=== PATIENT | male | born 1960 | race Caucasian/White ===

== ENCOUNTER 2017-08-29 09:52 | Observation (INO) | payer OTHER, MEDICARE ==
[~2017-08-29] VITALS: Ht 182.9 cm; Wt 118.2 kg
[~2017-08-29 09:52] MED LIST: ALBUTEROL0.63 MG/3 INH; ATIVAN2 MG PO; COMBIVENT RESPIM4 GM IH; LISINOPRIL10 MG PO; METFORMIN HCL500 MG PO; PRILOSEC20 MG PO; ZOLOFT50 MG PO
[2017-08-29] MEDS ORDERED: PIPER-TAZ 3.375 GM 50 ML IV STA (10:25)
[2017-08-29] MEDS ORDERED: SODIUM CHLORIDE 0.9% 1000ML 1,000 ML IV STA (10:25)
[2017-08-29] MEDS ORDERED: METHYLPREDNISOLONE SOD SUCC 125 MG/2ML VIAL IV ONE (10:30)
[2017-08-29] MEDS ORDERED: ONDANSETRON HCL INJ 2 MG/ML VIAL IV STA (10:42)
[2017-08-29] MEDS ORDERED: MORPHINE SULFATE 5 MG/ML VIAL IV ONE (10:45)
[2017-08-29] MEDS ORDERED: ALBUTEROL/IPRATROPIUM 3 ML NEB NEB PRN (11:00)
[2017-08-29 11:35] LABS: BASOPHILS # (AUTO) 0.1 (0.0-0.1); BASOPHILS % 1.3 % (0.0-1.0); EOSINOPHILS # (AUTO) 0.3 (0.0-0.4); HEMATOCRIT 43.1 % (38.2-49.6); HEMOGLOBIN 13.9 g/dL (14.0-18.0); LYMPHOCYTES # (AUTO) 2.8 (1.0-3.2); LYMPHOCYTES % 34.3 % (18.0-39.1); MEAN CORPUSCULAR HEMOGLOBIN 26.9 pg (28-32); MEAN CORPUSCULAR HGB CONC 32.3 g/dL (31-35); MEAN CORPUSCULAR VOLUME 83.4 fL (81-99); MONOCYTES # (AUTO) 0.9 (0.2-0.8); MONOCYTES % 11.2 % (4.4-11.3); NEUTROPHILS # (AUTO) 4.1 (2.1-6.9); NEUTROPHILS % 49.8 % (38.7-80.0); PLATELET COUNT 290 x10e3/uL (140-360); RED BLOOD COUNT 5.17 x10e6/uL (4.3-5.7); RED CELL DISTRIBUTION WIDTH 13.6 % (11.7-14.4)
--- NOTE | 2017-08-29 11:43 | Diagnostic Imaging Report ---
PROCEDURE: Frontal and lateral views of the chest. COMPARISON: 10/18/2014 INDICATIONS: SHORTNESS OF BREATH FINDINGS: Lines/tubes: None. Lungs: The lung volumes are low. There is subsegmental atelectasis and scarlike opacities in the lung bases and left midlung. Pleura: There is no pleural effusion or pneumothorax. Heart and mediastinum: The heart and the mediastinum are normal. Bones: No acute bony abnormality. IMPRESSION: Low lung volumes with subsegmental atelectasis and scarlike opacities in the lung bases and left midlung. No evidence of infection or edema. Dictated by: Hector Moss M.D. on 08/29/2017 at 11:51 Electronically approved by: Hector Moss M.D. on 08/29/2017 at 11:51
[2017-08-29 12:02] LABS: ALANINE AMINOTRANSFERASE 29 IU/L (0-55); ALBUMIN 3.7 g/dL (3.5-5.0); ALKALINE PHOSPHATASE 110 IU/L (40-150); BLOOD UREA NITROGEN 16 mg/dL (7-26); BUN/CREATININE RATIO 18 (6-25); CALCIUM 8.8 mg/dL (8.4-10.2); CARBON DIOXIDE 28 mmol/L (22-29); CHLORIDE 101 mmol/L (98-107); CREATININE, SERUM 0.87 mg/dL (0.72-1.25); EST GLOMERULAR FILTRATION RATE > 60 ML/MIN (60-); GLUCOSE 288 mg/dL (74-118); SODIUM 137 mmol/L (136-145)
[2017-08-29] MEDS ORDERED: DEXTROSE 50% SYRINGE 50 ML IV PRN (12:30)
[2017-08-29] MEDS ORDERED: LORAZEPAM 0.5 MG TAB PO PRN (13:15)
[2017-08-29] MEDS ORDERED: PANTOPRAZOLE SOD 40 MG TABEC PO SCH (14:00)
--- NOTE | 2017-08-29 14:46 | Diagnostic Imaging Report ---
Examination: CT Face with Contrast History:Right facial swelling. Tooth infection. Abscess. Comparison studies: None Technique: Axial images were obtained through the maxillofacial region. Coronal and sagittal reconstructions obtained from the axial data. Intravenous contrast: 100 mL Isovue-370. Findings: Soft tissues: No abnormalities. Bones: No fractures or bony abnormalities. Orbits: Globes: Intact Extra or intraconal abnormalities: None. Paranasal sinuses: Mild inflammatory mucosal thickening of the left sphenoid sinus. Nasal cavity: Patent. No septal deviation. IMPRESSION: 1. No phlegmonous change or abscess within the soft tissues of the face. 2. Mild inflammatory mucosal thickening of the left sphenoid sinus. Signed by: Dr. Vane Aguirre M.D. on 08/29/2017 2:42 PM
[2017-08-29] MEDS: ALBUTEROL SULF 0.083% NEB SOLN 3 ML NEB INH SCH ×2 (14:50→19:00)
[2017-08-29] MEDS ORDERED: SODIUM CHLORIDE 0.9% 50ML 50 ML ONE (15:03)
[2017-08-29] MEDS ORDERED: IOPAMIDOL 370 MG/ML 200 ML INFUS..BTL INJ ONE (15:03)
--- NOTE | 2017-08-29 16:06 | Discharge Summary ---
JAYDEN WILSON, LENGTH 0:3 JARRETT CHI MD Job#: [id number] RI
--- NOTE | 2017-08-29 16:34 | Consultation ---
DATE OF CONSULTATION: August 29, 2017 REASON FOR CONSULTATION: To evaluate and assist in the management of the patient with COPD exacerbation and right facial pain. Information is gathered from the current medical record. I interviewed the patient at the bedside. He is a 57-year-old male with diabetes and hypertension who came to the emergency room with complaints of increasing shortness of breath associated with nonproductive cough. The patient also reports that for the past 2 weeks or so he has been seeing a dentist for periodontal disease. He was told that he had dental infection for which he has been on amoxicillin and penicillin for about 2 weeks. He was started on amoxicillin initially and after he had completed the course, he went back to have some invasive dental procedure. He reports that he received injection in his gum 4 different times, apparently for anesthesia. Each time he had 4 separate injections. The procedure was unsuccessful. Since then, he has developed increasing pain in the right side of his face. He feels the pain in his ear. He feels as if the right side of his jaw is locked. He has had intermittent sweats. He cannot say for sure whether he had fevers. He came to the emergency room for evaluation. He is noted with a temperature of 98.9, a pulse rate of 78, respiratory rate 22 and blood pressure 165/107. His CBC shows a white count of 8.2 thousand. His serum creatinine is 0.8. His blood glucose is 288. Blood cultures have been ordered. He has had a chest x-ray which showed no evidence of infection or edema. ID consult is called to evaluate and assist with further management. PAST MEDICAL HISTORY: As reported above. He gives a history of left long/chest thoracotomy and chest tube placement for pleural effusion apparently. He said there was an infection. 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 He denies any history of kidney disease. He admits to being told in the past that his liver was inflamed from alcohol consumption. There is no history of TMJ arthritis. SOCIAL HISTORY: He does not smoke. He admits to alcohol use in the past. He denies other forms of recreational drug use. FAMILY HISTORY: Positive for diabetes and hypertension. ALLERGIES: NO KNOWN DRUG ALLERGIES. He has been started on treatment with Zosyn. The rest of his medications are per the medication admission report. REVIEW OF SYSTEMS: The patient is alert. His sensorium is clear. He is complaining of pain involving the right side of his face including his ear. He coughs and it is nonproductive. There is no chest pain. He complains of developing "stiffness" in the right side of his neck where he has pain. There is no sore throat. No visual complaints. No abdominal pain. In the past 2 weeks, he has had episodes of nausea and vomiting, but not currently. No frequency or dysuria. He reports what sounds like polyuria. PHYSICAL EXAMINATION GENERAL: He is an adult male. He is alert, responsive, coherent. He appears ill but not toxic and is in no acute distress. VITAL SIGNS: Temperature 98.9 degrees Fahrenheit. Blood pressure ranging from 134 to 165 systolic over 85 to 107 diastolic. HEENT: He has no gross pallor, no obvious icterus, no oropharyngeal lesions. Normocephalic. There is no obvious erythema involving the right side of his face. There is no gross edema. There is tenderness on palpating the area over the right temporomandibular joint. NECK: Supple. NECK: Supple. CHEST: Symmetric. LUNGS: Clear. HEART: Sounds are regular without any significant murmur. ABDOMEN: Soft, nontender with normal bowel sounds. EXTREMITIES: No acute erythema of his extremities. LABORATORY DATA: Creatinine 0.8, white count 8.2, hemoglobin 13.9, platelet count 290,000. Differentials on the white count appear unremarkable. Blood cultures are pending. Chest x-ray as previously reported. IMPRESSION AND PLAN: This 57-year-old male is presenting with probable chronic obstructive pulmonary disease exacerbation. He does have a history of chronic obstructive pulmonary disease. He has had injections for periodontal disease with infection. There is increasing pain in the right side of his face. I am concerned about persistence of his periodontal infection. I suggest we get a maxillofacial CT scan. We will continue treatment with Zosyn. Follow up on his cultures. Monitor temperature, CBC and renal function and monitor clinical response to treatment. If there is no improvement in the next 48-72 hours, we should consider adding vancomycin to the treatment regimen. I have discussed the findings and the treatment with the patient at the bedside. I have discussed the patient with Dr. Crespo. Thanks for the consult and the opportunity to participate in this patient's care. Job#: [id number] GH
[2017-08-29] MEDS: PIPER-TAZ 3.375 GM 50 ML IV SCH (17:35)
[2017-08-29] MEDS: METFORMIN HCL 500 MG TAB PO SCH (17:35)
[2017-08-29] MEDS: LISINOPRIL 10 MG TAB PO SCH (17:35)
[2017-08-29] MEDS: INSULIN REGULAR, HUMAN 100 UNIT/1 ML 3ML VIAL SQ SCH ×2 (18:20→21:16)
[2017-08-29 20:20] VITALS: BP 133/79
[2017-08-29] MEDS ORDERED: METHYLPREDNISOLONE SOD SUCC 40 MG/ML VIAL IV SCH (21:00)
[2017-08-29] MEDS ORDERED: ZOLPIDEM TARTRATE 5 MG TAB PO PRN (21:00)
[2017-08-29] MEDS: HYDROCODONE/APAP 10MG-325MG TAB PO PRN (21:06)
[2017-08-29] MEDS ORDERED: HYDROMORPHONE 1MG/1ML INJ IV STA (22:33)
[2017-08-29 23:28] VITALS: BP 143/74
[2017-08-30 00:47] VITALS: BP 104/82
[2017-08-30] MEDS ORDERED: SODIUM CHLORIDE 0.9% 250ML 250 ML ONE (02:46)
[2017-08-30] MEDS: PIPER-TAZ 3.375 GM 50 ML IV SCH (02:49)
[2017-08-30] MEDS: HYDROCODONE/APAP 10MG-325MG TAB PO PRN ×2 (02:50→22:30)
[2017-08-30 06:10] VITALS: BP 119/81
[2017-08-30 06:54] LABS: BASOPHILS % 0.1 % (0.0-1.0); HEMATOCRIT 39.4 % (38.2-49.6); HEMOGLOBIN 12.7 g/dL (14.0-18.0); LYMPHOCYTES # (AUTO) 1.1 (1.0-3.2); LYMPHOCYTES % 7.3 % (18.0-39.1); MEAN CORPUSCULAR HEMOGLOBIN 26.7 pg (28-32); MEAN CORPUSCULAR HGB CONC 32.2 g/dL (31-35); MEAN CORPUSCULAR VOLUME 82.8 fL (81-99); MONOCYTES # (AUTO) 0.5 (0.2-0.8); MONOCYTES % 3.2 % (4.4-11.3); NEUTROPHILS # (AUTO) 12.7 (2.1-6.9); NEUTROPHILS % 88.8 % (38.7-80.0); PLATELET COUNT 305 x10e3/uL (140-360); RED BLOOD COUNT 4.76 x10e6/uL (4.3-5.7); RED CELL DISTRIBUTION WIDTH 13.5 % (11.7-14.4)
[2017-08-30 07:26] LABS: ANION GAP 17.4 mmol/L (8-16); BLOOD UREA NITROGEN 26 mg/dL (7-26); BUN/CREATININE RATIO 22 (6-25); CARBON DIOXIDE 22 mmol/L (22-29); CHLORIDE 99 mmol/L (98-107); CREATININE, SERUM 1.17 mg/dL (0.72-1.25); EST GLOMERULAR FILTRATION RATE > 60 ML/MIN (60-); POTASSIUM 4.4 mmol/L (3.5-5.1); SODIUM 134 mmol/L (136-145)
[2017-08-30] MEDS: INSULIN REGULAR, HUMAN 100 UNIT/1 ML 3ML VIAL SQ SCH ×4 (07:30→22:25)
[2017-08-30] MEDS: PANTOPRAZOLE SOD 40 MG TABEC PO SCH (07:30)
[2017-08-30 07:38] LABS: GLUCOSE 478 mg/dL (74-118)
[2017-08-30 08:00] VITALS: BP 143/85
[2017-08-30] MEDS: ALBUTEROL SULF 0.083% NEB SOLN 3 ML NEB INH SCH ×5 (08:00→22:15)
[2017-08-30] MEDS ORDERED: INSULIN DETEMIR 100 UNIT/ML PEN SQ ONE ×2 (08:15→08:33)
[2017-08-30] MEDS ORDERED: MAGNESIUM HYDROXIDE 30 ML UDC PO PRN (08:15)
[2017-08-30] MEDS: LISINOPRIL 10 MG TAB PO SCH ×2 (08:49→17:27)
[2017-08-30] MEDS: METFORMIN HCL 500 MG TAB PO SCH ×2 (08:49→17:27)
[2017-08-30] MEDS: POLYETHYLENE GLYCOL 3350 17 GM PACK PO SCH (08:49)
[2017-08-30] MEDS ORDERED: NON-FORMULARY MEDICATION (Omeprazole (Prilosec) 20 MG) PO SCH (09:00)
[2017-08-30] MEDS: TIOTROPIUM 18 MCG INH POWDER INH SCH (10:00)
[2017-08-30] MEDS: BUDESONIDE/FORMOTEROL 160/4.5MCG INHALER INH SCH ×2 (10:00→19:00)
[2017-08-30 12:00] VITALS: BP 170/84
[2017-08-30] MEDS: PIPERACILLIN/TAZOBAC 3.375 GM in SODIUM CHLORIDE 0.9% 100 ML 100 ML IV SCH ×2 (12:39→22:25)
--- NOTE | 2017-08-30 12:49 | History and Physical ---
CHIEF COMPLAINT: Worsening dyspnea and facial swelling. HISTORY OF PRESENT ILLNESS: The patient is a 57-year-old man. He has a long history of COPD. He uses nebulizers and inhalers at home. Over the past several weeks, he has had some dental pain. He went to see the dentist and was found to have a dental abscess. They attempted to pull the tooth with difficulty anesthetizing the area. He was scheduled to return, but in the interim has developed worsening facial swelling and night sweats. He also complains of worsening pain. PAST MEDICAL HISTORY 1. Hypertension. 2. Diabetes. 3. COPD. PAST SURGICAL HISTORY: Noncontributory. SOCIAL HISTORY: Patient is not an active drinker. He quit smoking. ALLERGIES: THERE ARE NO KNOWN ALLERGIES. REVIEW OF SYSTEMS: The patient may have had chills at night. There are no fevers. He has some facial swelling. He complains of dental pain. He is not having any neck pain. He denies any chest pain. He does have wheezing and difficulty breathing. He does not complain of abdominal pain, nausea or vomiting. He has no leg swelling. There are no neurological complaints. PHYSICAL EXAMINATION VITALS: The patient is afebrile. The vital signs are stable. HEENT: Shows no facial swelling or erythema. The nasal mucosa is normal. LYMPHATICS: Shows no submandibular, cervical or supraclavicular adenopathy. NECK: Shows no JVD or thyromegaly. There is no nuchal rigidity. CARDIAC: Reveals a regular rate and rhythm with a normal S1 and S2. There are no murmurs or rubs. LUNGS: Auscultation of the lungs reveals a few wheezes bilaterally. There is a prolonged expiratory phase. ABDOMEN: Soft and nontender. There is no rebound or guarding. EXTREMITIES: Shows no leg edema or calf tenderness. There is no cyanosis or clubbing. SKIN: Shows no rashes. NEUROLOGICAL: Shows no focal abnormalities. LABORATORY DATA: Sodium is 134. The BUN to creatinine ratio is 26 to 1.17. The blood sugar is elevated to 478. Blood counts are within normal limits. RADIOGRAPHIC DATA: CT scan of the chest shows mild mucosal thickening of the left sphenoid sinus. There is no abscess or obvious spread of the dental infection. Chest x-ray shows some atelectasis with scarring in the lower lung guevara. IMPRESSION 1. Dental abscess with possible cellulitis. 2. Chronic obstructive pulmonary disease with acute exacerbation. PLAN 1. Place the patient in observation status. 2. Antibiotics with infectious disease consult. 3. Bronchodilators. 4. Wean Solu-Medrol. 5. Control blood sugars. 6. Tentative discharge within the next 24-48 hours. Job#: [id number] RI
--- NOTE | 2017-08-30 12:53 | Progress Note ---
DATE: August 30, 2017 PROGRESS NOTE SUBJECTIVE: I met the patient resting quietly, asleep. He is in no acute distress. He still has pain involving the right side of his face transmitted to his ear. No visual complaints. No complains of chills or sweats. No nausea, vomiting, or diarrhea. No other systemic complaints reported. PHYSICAL EXAMINATION: VITAL SIGNS: In the past 24 hours, his maximum temperature was up to 98.9 degrees Fahrenheit. GENERAL: He is hemodynamically stable. He is obese. SKIN: He has no gross pallor. HEENT: No obvious icterus. There is no obvious right facial swelling or erythema. NECK: Supple. CHEST: Symmetric. LUNGS: Clear. HEART: Sounds are regular without a significant murmur. ABDOMEN: Soft, nontender. Bowel sounds are normal. EXTREMITIES: There is no acute erythema of his extremities. LABS: His white count has increased from 8.2 to 14.3. His creatinine increased from 0.8 to 1.1, blood glucose 288 to 478. Blood cultures from August 29, [address] scan of the maxillofacial area shows mild sphenoid sinusitis, no abscess within the soft tissues of the face. IMPRESSION: He has periodontal disease. He had several injections recently. His white count has increased. He is otherwise afebrile. I suggest continue treatment with Zosyn. If the leukocytosis persists, we will add gram-positive coverage. Continue to monitor temperature, CBC, renal function, and monitor clinical response of treatment. Please note this is ID cross-cover for Dr. Rankin. Job#: [id number] JULIA
[2017-08-30 16:00] VITALS: BP 140/77
[2017-08-30 20:00] VITALS: BP 122/73
[2017-08-31] VITALS: BP 127/68
[2017-08-31] MEDS: ALBUTEROL SULF 0.083% NEB SOLN 3 ML NEB INH SCH ×2 (03:00→08:45)
[2017-08-31 04:54] VITALS: BP 129/81
[2017-08-31] MEDS: PIPERACILLIN/TAZOBAC 3.375 GM in SODIUM CHLORIDE 0.9% 100 ML 100 ML IV SCH (05:48)
[2017-08-31] MEDS: TIOTROPIUM 18 MCG INH POWDER INH SCH (05:49)
[2017-08-31 06:23] LABS: BASOPHILS # (AUTO) 0.1 (0.0-0.1); BASOPHILS % 0.5 % (0.0-1.0); EOSINOPHILS # (AUTO) 0.3 (0.0-0.4); EOSINOPHILS % 2.1 % (0.0-6.0); HEMATOCRIT 38.4 % (38.2-49.6); HEMOGLOBIN 12.2 g/dL (14.0-18.0); LYMPHOCYTES # (AUTO) 3.9 (1.0-3.2); LYMPHOCYTES % 29.9 % (18.0-39.1); MEAN CORPUSCULAR HEMOGLOBIN 26.4 pg (28-32); MEAN CORPUSCULAR HGB CONC 31.8 g/dL (31-35); MEAN CORPUSCULAR VOLUME 83.1 fL (81-99); MONOCYTES # (AUTO) 0.9 (0.2-0.8); MONOCYTES % 6.7 % (4.4-11.3); NEUTROPHILS # (AUTO) 7.9 (2.1-6.9); NEUTROPHILS % 60.3 % (38.7-80.0); PLATELET COUNT 277 x10e3/uL (140-360); RED BLOOD COUNT 4.62 x10e6/uL (4.3-5.7)
[2017-08-31 06:40] LABS: ALANINE AMINOTRANSFERASE 28 IU/L (0-55); ALBUMIN 3.3 g/dL (3.5-5.0); ALBUMIN/GLOBULIN RATIO 0.9 (0.8-2.0); ALKALINE PHOSPHATASE 101 IU/L (40-150); ANION GAP 13.3 mmol/L (8-16); BLOOD UREA NITROGEN 22 mg/dL (7-26); BUN/CREATININE RATIO 24 (6-25); CALCIUM 8.5 mg/dL (8.4-10.2); CARBON DIOXIDE 26 mmol/L (22-29); CHLORIDE 102 mmol/L (98-107); CREATININE, SERUM 0.92 mg/dL (0.72-1.25); EST GLOMERULAR FILTRATION RATE > 60 ML/MIN (60-); GLUCOSE 270 mg/dL (74-118); POTASSIUM 4.3 mmol/L (3.5-5.1); SODIUM 137 mmol/L (136-145)
[2017-08-31] MEDS: PANTOPRAZOLE SOD 40 MG TABEC PO SCH (07:30)
[2017-08-31] MEDS: INSULIN REGULAR, HUMAN 100 UNIT/1 ML 3ML VIAL SQ SCH (07:30)
[2017-08-31 08:00] VITALS: BP 121/67
[2017-08-31] MEDS: METFORMIN HCL 500 MG TAB PO SCH (08:00)
[2017-08-31] MEDS: LISINOPRIL 10 MG TAB PO SCH (09:00)
[2017-08-31] MEDS: POLYETHYLENE GLYCOL 3350 17 GM PACK PO SCH (09:00)
[2017-08-31] MEDS: HYDROCODONE/APAP 10MG-325MG TAB PO PRN (09:24)
== END 2017-08-31 11:15 | disposition home or self-care (01) ==
LOC: ER 09:52 → INTOOBSV 12:04 → ERHOLD 12:04 → MED/SURG 19:32 → MED/SURG2 19:42
PROVIDERS: ADMIT Internal Medicine Critical Care Medicine; ATTEND Internal Medicine Critical Care Medicine
DX: J44.1 Chronic obstructive pulmonary disease with (acute) exacerbation (principal); E11.65 Type 2 diabetes mellitus with hyperglycemia; K04.7 Periapical abscess without sinus
CPT/HCPCS: 36415 ×3; 70487; 71020; 80048; 80053 ×2; 82948 ×2; 85025 ×3; 87040; 94640; 96360; 96365; 96374; 99284; G0378 ×3; J1170; J2270; J2405; J2543 ×4; J2920; J2930; J7030; J7050; Q9967